=== PATIENT | female | born 1950 | race Caucasian/White ===

== ENCOUNTER 2019-05-24 11:10 | Emergency (ER) | payer BC, MEDICARE ==
--- NOTE | 2019-05-24 11:47 | EDM.PDOC ---
ED HPI GENERAL MEDICAL PROBLEM - General Chief Complaint: Lower Extremity Injury/Pain Time Seen by Provider: 05/24/19 11:10 Source of Information: Reports: Patient, Family History Limitations: Reports: No Limitations - History of Present Illness INITIAL COMMENTS - FREE TEXT/NARRATIVE: Pt. states that last night she tripped over some dogs and fell, injuring her L lower extremity and head. She had a + LOC. Denies any chest pain, shortness of breath, or other symptoms prior to the fall. She went to bed and was unable to stand today. EMS was summoned. Pt. denies any chest pain or shortness of breath. She has not been confused. Pain is located primarily in L knee and L lower leg. Onset Date: 05/24/19 Location: Reports: Head, Lower Extremity, Left Left Lower Leg Pain Score (Numeric/FACES): 9 - Related Data Allergies Allergy/AdvReac Type Severity Reaction Status Date / Time No Known Allergies Allergy Verified 05/24/19 11:22 Home Meds: Home Meds . [No Known Home Meds] 05/24/19 [History] Review of Systems - Review of Systems Review Of Systems: See Below Constitutional: Reports: No Symptoms Eyes: Reports: No Symptoms Ears: Reports: No Symptoms Nose: Reports: No Symptoms Mouth/Throat: Reports: No Symptoms Respiratory: Reports: No Symptoms Cardiovascular: Reports: No Symptoms GI/Abdominal: Reports: No Symptoms Genitourinary: Reports: No Symptoms Musculoskeletal: Reports: Leg Pain, Joint Pain Skin: Reports: No Symptoms Neurological: Reports: No Symptoms Psychiatric: Reports: No Symptoms ED EXAM, GENERAL - Physical Exam Exam: See Below Exam Limited By: No Limitations General Appearance: Alert, WD/WN, No Apparent Distress Eye Exam: Bilateral Eye: EOMI, PERRL Nose: Normal Inspection, No Blood Head: Atraumatic, Normocephalic Neck: Normal Inspection, Supple, Non-Tender, Full Range of Motion Extremities: Non-Tender, No Pedal Edema, Joint Swelling, Leg Pain, Limited Range of Motion Neurological: Alert, Oriented, CN II-XII Intact, Normal Cognition, Normal Gait, Normal Reflexes, No Motor/Sensory Deficits Psychiatric: Anxious Skin Exam: Warm, Dry, Intact Course - Vital Signs Last Recorded V/S: Last Vital Signs Temp 36.6 C 05/24/19 11:15 Pulse 64 05/24/19 11:15 Resp 16 05/24/19 11:15 BP 130/66 05/24/19 11:15 Pulse Ox 97 05/24/19 11:15 - Orders/Labs/Meds Meds: Medications Discontinued Medications Generic Name Dose Route Start Last Admin Trade Name Freedom PRN Reason Stop Dose Admin Hydrocodone Bitart/Acetaminophen 1 tab 05/24/19 15:37 05/24/19 15:41 [place] 325-10 Mg PO 05/24/19 15:38 1 tab ONETIME ONE Administration - Radiology Interpretation Free Text/Narrative:: Slightly depressed acute lateral tibial plateau fx. with moderate lipohemarthrosis. CT performed and forwarded to [facility] and reviewed by orthopedics. Findings consistent with the plain film x-ray. Departure - Departure Time of Disposition: 16:30 Disposition: Home, Self-Care 01 Clinical Impression: Tibial plateau fracture, left - Discharge Information Instructions: Displaced Tibial Plateau Fracture Referrals: Tara Partida MD [Primary Care Provider] - Forms: ED Department Discharge Additional Instructions: Keep knee immobilizer on. Ice and elevate the leg as much as possible. It is every swollen and this needs to improve before they can operate. Aspirin 325mg once daily. [place] 10/325mg every 4-6 hours for pain. I would also take a stool softener to decrease chances of constipation. [facility] will contact you regarding an appointment. - Assessment/Plan Plan: Keep knee immobilizer on. Ice and elevate the leg as much as possible. It is every swollen and this needs to improve before they can operate. Aspirin 325mg once daily. [place] 10/325mg every 4-6 hours for pain. I would also take a stool softener to decrease chances of constipation. [facility] will contact you regarding an appointment. They have reviewed the x-rays and CT and will be in contact with you.
--- NOTE | 2019-05-24 12:58 | CT ---
[id number] CT/CT Head WO IV EXAM: NONCONTRAST HEAD CT INDICATION: FALL, KNOCKED OVER BY DOG. COMPARISON: None. DISCUSSION: The ventricles and sulci are normal in size and configuration. The choudhury and white matter are normal in attenuation. No mass effect or midline shift. No acute hemorrhage or extra-axial fluid collection. No acute territorial infarct is identified. A limited look at the orbits and paranasal sinuses is unremarkable. IMPRESSION: 1. Negative exam. Doc Mitchell MD 05/24/19 0577 Thank you for allowing us to participate in the care of your patient.
--- NOTE | 2019-05-24 13:01 | CR ---
[id number] RAD/RAD Knee Left 1-2V; [id number] RAD/RAD Tibia Fibula Left EXAM: LEFT KNEE 2 VIEWS, LEFT TIBIA FIBULA 2 VIEWS INDICATION: FALL, KNOCKED OVER BY DOG. COMPARISON: None. DISCUSSION: Slightly depressed acute lateral tibial plateau fracture involving the articular surface. There is a moderate associated lipohemarthrosis. 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 Soft tissue swelling surrounding the knee. Osteopenia. Small plantar calcaneal spur. Moderate midfoot osteoarthritis. IMPRESSION: 1. Slightly depressed acute lateral tibial plateau fracture with moderate lipohemarthrosis. Doc Mitchell MD 05/24/19 1300 Thank you for allowing us to participate in the care of your patient.
--- NOTE | 2019-05-24 14:45 | CT ---
[id number] CT/CT Knee Left WO IV EXAM: CT Knee Left WO IV INDICATION: FRACTURED TIBIA. COMPARISON: Radiographs same date. FINDINGS: Mildly comminuted and displaced multidirectional fracture of the proximal tibial plateau with extension to the lateral compartment articular surface further is about 1.5 mm step-off and 1 mm distraction of the articular surface. Osteopenia. Mild to moderate tricompartmental osteoarthritis. Moderate lipohemarthrosis. Soft tissue swelling surrounding the knee is most prominent anteriorly. IMPRESSION: 1. Mildly comminuted multidirectional fracture of the proximal tibia with extension to the lateral compartment articular surface or there is about 1.5 mm step-off and 1 mm distraction. Doc Mitchell MD 05/24/19 1449 Thank you for allowing us to participate in the care of your patient.
[2019-05-24] MEDS ORDERED: Acetaminophen/HYDROcodone 325-10 MG Tab PO ONE (15:37)
== END 2019-05-24 15:50 | disposition home or self-care (01) ==
LOC: VM.ED 11:10
DX: S82.142A Displaced bicondylar fracture of left tibia, initial encounter for closed fracture (principal); W01.0XXA Fall on same level from slipping, tripping and stumbling without subsequent striking against object, initial encounter
CPT/HCPCS: 70450; 73560-LT; 73590-LT; 73700-LT; 99283-GF; 99284-25; A9270-GY

== ENCOUNTER 2019-05-31 14:28 | Emergency (ER) | payer MEDICARE ==
[2019-05-31] MEDS ORDERED: Sodium Chloride 0.9% 1,000 ML IV ONE (14:35)
[2019-05-31] MEDS ORDERED: LORazepam 2 MG/ML SDV IVPUSH ONE (14:35)
[2019-05-31] MEDS ORDERED: Metoprolol Tartrate 5 MG/5 ML SDV IVPUSH ONE ×2 (14:35→15:35)
[2019-05-31] MEDS ORDERED: Sodium Chloride 0.9% 10 ML Syringe FLUSH PRN (14:35)
--- NOTE | 2019-05-31 14:42 | EDM.PDOC ---
ED HPI GENERAL MEDICAL PROBLEM - General Chief Complaint: General Stated Complaint: high blood pressure Time Seen by Provider: 05/31/19 14:28 Source of Information: Reports: Patient History Limitations: Reports: No Limitations - History of Present Illness INITIAL COMMENTS - FREE TEXT/NARRATIVE: Patient comes into the emergency department by EMS for concerns of elevated blood pressure (>240 systolic). Patient recently had a left tibial plateau fracture requiring surgery however they had to hold off on her surgery because elevated blood pressure. She followed up with her primary care provider yesterday which she states that she had a blood pressure greater than 200 systolic, ekg, and blood work completed. Patient states that her provider told her everything "look good" and discharged her from the clinic with no further management needed. Home health stopped by her house today to help her due to her limited mobility since her injury. During that visit they took her blood pressure and found that it was greater than 240 systolic and ended up calling the ambulance. Denies any chest pain, shortness of breath, dizziness, nausea, headache, or lower extremity edema on her non-injured leg. Patient states that she does have a history of anxiety and has been very anxious last few days especially with her decrease in mobility and inability to complete her activities of daily living. She is also nervous about her upcoming surgery that was planned. So nervous that it was postponed due to high blood pressure and when she was at the clinic yesterday she was not given anything to help lower the blood pressure. Patient denies any other concerns or complaints. This is states that her pain has been controlled fairly well despite the fracture. Onset: Gradual Location: Reports: Other Quality: Reports: Other Severity: Moderate Improves with: Reports: None Worsens with: Reports: None Associated Symptoms: Reports: No Other Symptoms - Related Data Allergies Allergy/AdvReac Type Severity Reaction Status Date / Time No Known Allergies Allergy Verified 05/24/19 11:22 Home Meds: Home Meds . [No Known Home Meds] 05/24/19 [History] Past Medical History Cardiovascular History: Reports: CAD ED ROS GENERAL - Review of Systems Review Of Systems: See Below Constitutional: Reports: No Symptoms HEENT: Reports: No Symptoms Respiratory: Reports: No Symptoms Cardiovascular: Reports: No Symptoms Endocrine: Reports: No Symptoms GI/Abdominal: Reports: No Symptoms : Reports: No Symptoms Musculoskeletal: Reports: Other (left tibial plateau fracture 1 week ago with brace ) Skin: Reports: No Symptoms Neurological: Reports: No Symptoms Psychiatric: Reports: Anxiety Hematologic/Lymphatic: Reports: No Symptoms Immunologic: Reports: No Symptoms ED EXAM, GENERAL - Physical Exam Exam: See Below Exam Limited By: No Limitations General Appearance: Alert, WD/WN, No Apparent Distress Eye Exam: Bilateral Eye: EOMI, PERRL Neck: Normal Inspection, Supple, Non-Tender, Full Range of Motion Respiratory/Chest: No Respiratory Distress, Lungs Clear, Normal Breath Sounds, No Accessory Muscle Use, Chest Non-Tender Cardiovascular: Normal Peripheral Pulses, Regular Rate, Rhythm, No Edema GI/Abdominal: Normal Bowel Sounds, Soft, Non-Tender, No Distention Back Exam: Normal Inspection, Full Range of Motion Extremities: Normal Capillary Refill, Limited Range of Motion (left knee brace in place for tibial plateau fracture. mild lower extremity swelling and bruising noted ), Other Neurological: Alert, Oriented Psychiatric: Anxious Skin Exam: Warm, Dry, Intact Course - Orders/Labs/Meds Orders: Active Orders 24 hr Category Date Time Status EKG Documentation Completion [RC] STAT Care 05/31/19 14:35 Ordered CBC WITH AUTO DIFF [HEME] Stat Lab 05/31/19 14:35 Ordered COMPREHENSIVE METABOLIC PN,CMP [CHEM] Stat Lab 05/31/19 14:35 Ordered CREATINE KINASE,CK [CHEM] Stat Lab 05/31/19 14:35 Ordered TROPONIN I [CHEM] Stat Lab 05/31/19 14:35 Ordered Sodium Chloride 0.9% [Normal Saline] 1,000 ml Med 05/31/19 14:35 Ordered IV ONETIME Sodium Chloride 0.9% [Saline Flush] Med 05/31/19 14:35 Ordered 10 ml FLUSH ASDIRECTED PRN Peripheral IV Insertion Adult [OM.PC] Stat Oth 05/31/19 14:34 Ordered Medication Orders Sodium Chloride (Normal Saline) 1,000 mls @ 1,000 mls/hr IV ONETIME ONE Stop: 05/31/19 15:34 Lorazepam (Ativan) 0.5 mg IVPUSH STAT ONE Stop: 05/31/19 14:36 Metoprolol Tartrate (Lopressor) 5 mg IVPUSH ONETIME ONE Stop: 05/31/19 14:36 Sodium Chloride (Saline Flush) 10 ml FLUSH ASDIRECTED PRN PRN Reason: Keep Vein Open Meds: Medications Generic Name Dose Route Start Last Admin Trade Name Freq PRN Reason Stop Dose Admin Sodium Chloride 1,000 mls @ 1,000 mls/hr 05/31/19 14:35 Normal Saline IV 05/31/19 15:34 ONETIME ONE Lorazepam 0.5 mg 05/31/19 14:35 Ativan IVPUSH 05/31/19 14:36 STAT ONE Metoprolol Tartrate 5 mg 05/31/19 14:35 Lopressor IVPUSH 05/31/19 14:36 ONETIME ONE Sodium Chloride 10 ml 05/31/19 14:35 Saline Flush FLUSH ASDIRECTED PRN Keep Vein Open Departure - Departure Time of Disposition: 16:05 Disposition: DC/Tfer to Acute Hospital 02 Condition: Good Clinical Impression: Elevated blood pressure reading, Elevated troponin Tibial plateau fracture, left Qualifiers: Encounter type: sequela Fracture type: closed Qualified Code(s): S82.142S - Displaced bicondylar fracture of left tibia, sequela - Discharge Information *PRESCRIPTION DRUG MONITORING PROGRAM REVIEWED*: Not Applicable *COPY OF PRESCRIPTION DRUG MONITORING REPORT IN PATIENT [employer]: Not Applicable Forms: Interfacility Transfer EMTALA - Problem List Review Problem List Initiated/Reviewed/Updated: Yes - My Orders Last 24 Hours: My Active Orders 05/31/19 14:34 Peripheral IV Insertion Adult [OM.PC] Stat 05/31/19 14:35 EKG Documentation Completion [RC] STAT CBC WITH AUTO DIFF [HEME] Stat COMPREHENSIVE METABOLIC PN,CMP [CHEM] Stat CREATINE KINASE,CK [CHEM] Stat TROPONIN I [CHEM] Stat Sodium Chloride 0.9% [Normal Saline] 1,000 ml IV ONETIME Sodium Chloride 0.9% [Saline Flush] 10 ml FLUSH ASDIRECTED PRN - Assessment/Plan Last 24 Hours: My Active Orders 05/31/19 14:34 Peripheral IV Insertion Adult [OM.PC] Stat 05/31/19 14:35 EKG Documentation Completion [RC] STAT CBC WITH AUTO DIFF [HEME] Stat COMPREHENSIVE METABOLIC PN,CMP [CHEM] Stat CREATINE KINASE,CK [CHEM] Stat TROPONIN I [CHEM] Stat Sodium Chloride 0.9% [Normal Saline] 1,000 ml IV ONETIME Sodium Chloride 0.9% [Saline Flush] 10 ml FLUSH ASDIRECTED PRN Assessment:: 1. elevated blood pressure 2. anxiety 3. Positive Troponin 4. Tibial plateau fracture awaiting surgery Plan: 1. Labs completed in ER. Results reviewed with patient 2. EKG completed in the ER. Results reviewed with patient 3. IV and fluids initiated in the ER 4. 0.5 mg IV Ativan given in the ER for increased anxiety 5. 2.5mg IV Lopressor given 6. 324mg ASA given in ER 7. Patient does have surgery planned at [facility] on Monday for right left lower extremity fracture and she would like to go to the same hospital if possible. [facility] One call was contacted Dr. Malcolm ER provider accepted transfer of the pt. Pt will be transferred via EMS for further cardiac workup, medical management, and surgical interventions. 8. All questions and concerns addressed prior to discharge.
[2019-05-31 15:27] LABS: CHLORIDE,CL 108 mmol/L (54-184); SODIUM,NA 143 mmol/L (69-191)
[2019-05-31] MEDS ORDERED: Aspirin 81 MG Tab.Chew PO ONE (15:55)
== END 2019-05-31 17:05 | disposition short-term general hospital (02) ==
LOC: VM.ED 14:28
DX: R03.0 Elevated blood-pressure reading, without diagnosis of hypertension (principal); S82.142S Displaced bicondylar fracture of left tibia, sequela; R74.8 Abnormal levels of other serum enzymes
CPT/HCPCS: 36415; 80053; 82550; 84484; 85025; 93005; 96361; 96374; 96375; 99285; A9270; J2060; J3490; J7030; 99283-GF

== ENCOUNTER 2021-10-17 20:06 | Emergency (ER) | payer OTHER, MEDICARE, MEDICAID ==
[2021-10-17] MEDS ORDERED: Proparacaine 0.5% Ophth Soln 15 ML Bottle EYERT PRN (20:25)
[2021-10-17] MEDS ORDERED: Fluorescein 1 MG Ophth Strip EYEBOTH ONE (20:27)
[2021-10-17] MEDS ORDERED: Ciprofloxacin 0.3% Ophth Soln 2.5 ML Bottle EYERT ONE (20:40)
[2021-10-17] MEDS ORDERED: Ibuprofen 200 MG Tab PO STA (20:41)
[2021-10-17] MEDS ORDERED: Take Home: Acetaminophen/HYDROcodone 325-5 MG, 5 Tab Pack PO ONE (20:41)
== END 2021-10-17 21:09 | disposition home or self-care (01) ==
LOC: VM.ED 20:06
DX: S05.01XA Injury of conjunctiva and corneal abrasion without foreign body, right eye, initial encounter (principal); I48.91 Unspecified atrial fibrillation; I25.10 Atherosclerotic heart disease of native coronary artery without angina pectoris; I11.0 Hypertensive heart disease with heart failure; I50.9 Heart failure, unspecified; I25.2 Old myocardial infarction; Z88.1 Allergy status to other antibiotic agents; Z79.899 Other long term (current) drug therapy; Z79.82 Long term (current) use of aspirin; W22.8XXA Striking against or struck by other objects, initial encounter; Y92.89 Other specified places as the place of occurrence of the external cause; Y99.0 Civilian activity done for income or pay
CPT/HCPCS: 99283; A9270-GY

== ENCOUNTER 2022-08-20 00:05 | Emergency (ER) | payer MEDICARE, MEDICAID ==
[2022-08-20] MEDS ORDERED: Sodium Chloride 0.9% 10 ML Syringe FLUSH PRN (00:18)
[2022-08-20 01:01] LABS: CHLORIDE,CL 103 mmol/L (98-107); SODIUM,NA 141 mmol/L (136-145)
[2022-08-20 01:02] LABS: ANION GAP 12.7 mmol/L (5-15); ESTIMATED GFR 12 mL/min (>=60)
[2022-08-20] MEDS ORDERED: Take Home: Ciprofloxacin 500 MG Tab, 2 Tab Pack PO ONE (01:19)
[2022-08-20] MEDS ORDERED: ceFAZolin 1 GM Vial IVPUSH ONE (01:19)
== END 2022-08-20 01:45 | disposition home or self-care (01) ==
LOC: VM.ED 00:05
DX: T85.71XA Infection and inflammatory reaction due to peritoneal dialysis catheter, initial encounter (principal); I48.91 Unspecified atrial fibrillation; I25.10 Atherosclerotic heart disease of native coronary artery without angina pectoris; I11.0 Hypertensive heart disease with heart failure; I50.9 Heart failure, unspecified; I25.2 Old myocardial infarction; J43.1 Panlobular emphysema; Z88.2 Allergy status to sulfonamides; Z79.82 Long term (current) use of aspirin; Z79.899 Other long term (current) drug therapy
CPT/HCPCS: 36415; 80053; 83605; 83735; 84100; 84145; 85025; 86140; 87040; 87070; 96374; 99283-25; 99284; A9270-GY; J0690